=== PATIENT | male | born 1985 | race Two or more races ===

== ENCOUNTER 2019-04-25 19:34 | Emergency (ER) | payer OTHER ==
[~2019-04-25] VITALS: Ht 165.1 cm; Wt 90.7 kg
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
--- NOTE | 2019-04-25 20:08 | NUR ---
ED Nurse Note: Patient walked in from home d/t left side sharp pain 7/10, per pt he fell a few days ago on left side. Left side bruising noted. Patient aao x 4 and ambulatory with steady gait. Patient stable upon assessment.
[2019-04-25 20:09] VITALS: BP 148/88
--- NOTE | 2019-04-25 20:15 | NUR ---
ED Nurse Note: Patient taken to CT in stable condition.
--- NOTE | 2019-04-25 20:30 | NUR ---
ED Nurse Note: Patient returned from CT in stable condition.
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
[2019-04-25 21:06] VITALS: BP 139/75
--- NOTE | 2019-04-25 21:06 | NUR ---
ER DISCHARGE NOTE: Patient is cleared to be discharged per ERMD, pt is aox4, on room air, with stable vital signs. pt was given dc instructions, pt was able to verbalize understanding, pt id band removed. pt is able to ambulate with steady gait. pt took all belongings. pt stable upon discharge.
== END 2019-04-25 21:06 | disposition home or self-care (01) ==
LOC: EMR 20:00
DX: S20.212A Contusion of left front wall of thorax, initial encounter (principal); S20.20XA Contusion of thorax, unspecified, initial encounter; X58.XXXA Exposure to other specified factors, initial encounter; Y92.9 Unspecified place or not applicable
CPT/HCPCS: 71250; Z7502; 99284